=== PATIENT | male | born 1970 | race Two or more races ===

== ENCOUNTER 2021-05-29 12:16 | Emergency (ER) | payer BC ==
[~2021-05-29] VITALS: Ht 182.9 cm; Wt 99.8 kg
[2021-05-29] MEDS ORDERED: OSEL75CA PO (16:23)
== END 2021-05-29 16:44 ==
LOC: ER 12:16
DX: J10.1 Influenza due to other identified influenza virus with other respiratory manifestations (principal); B34.9 Viral infection, unspecified; Z20.822 Contact with and (suspected) exposure to COVID-19

== ENCOUNTER 2021-06-02 13:40 | Emergency (ER) | payer BC ==
[~2021-06-02] VITALS: Ht 157.5 cm; Wt 98.9 kg
[~2021-06-02 13:40] MED LIST: OSEL75CA PO
== END 2021-06-02 16:49 | disposition home or self-care (01) ==
LOC: ER 13:40
DX: J10.1 Influenza due to other identified influenza virus with other respiratory manifestations (principal)